=== PATIENT | male | born 1945 | race Caucasian/White ===

== ENCOUNTER 2019-07-09 06:35 | Day surgery (SDC) | payer MEDICARE ==
[2019-07-08 09:46] VITALS: BMI 28.7
[2019-07-09] MEDS ORDERED: EPHEDRINE 25 MG/5 ML SYRINGE ONE ×2 (09:48→10:34)
[2019-07-09] MEDS ORDERED: Lidocaine 1% PF 5 ML VIAL ONE (10:34)
[2019-07-09] MEDS ORDERED: PHENYLEPHRINE-NS 100 MCG/ML 10 ML SYRINGE ONE (10:34)
[2019-07-09] MEDS ORDERED: PROPOFOL 200 MG/20 ML VIAL ONE (10:34)
--- NOTE | 2019-07-09 11:58 | OP ---
DATE OF PROCEDURE: 07/09/2019 PROCEDURE PERFORMED: Colonoscopy with snare polypectomy. PREMEDICATION: Given by Anesthesiology Department. PREPROCEDURE DIAGNOSES: Colon screening, average risk. POSTPROCEDURE DIAGNOSES: 1. Six polyps (2 ascending, 1 hepatic flexure, 2 sigmoid). Polyps were removed. 2. Sigmoid diverticulosis coli. 3. Otherwise, normal colon exam. DESCRIPTION OF PROCEDURE: Written consents were obtained prior to procedure. After adequate sedation, rectal exam was performed and was normal. The endoscope was advanced to the cecum. The quality of the bowel prep was good. The ileocecal valve and appendiceal orifice were visualized and appeared normal. In the ascending colon, 2 ascending colon polyps measuring between 3 to 5 mm were noted and removed with cold snare. A 6 mm hepatic flexure polyp was noted and removed with cold snare and retrieved. The transverse colon appeared normal. Splenic flexure appeared normal. Descending colon appeared normal. Scattered diverticula were noted in the sigmoid colon. Two small polyps ranging between 3 to 5 mm were noted in the sigmoid colon and were removed with cold snare. The rectal vault appeared normal including retroflexion. All polyps were retrieved. The patient tolerated the procedure well without any complication. ASSESSMENT: 1. Six polyps removed. 2. Mild sigmoid diverticulosis coli. 3. Otherwise, normal colon exam. RECOMMENDATIONS: 1. Resume Eliquis tomorrow. 2. Await polyp biopsy result. 3. Future surveillance exam will depend on polyp histology. Job ID: [id number]
== END 2019-07-09 11:03 | disposition home or self-care (01) ==
LOC: SDC 06:35
PROVIDERS: ATTEND Internal Medicine Gastroenterology
PROC: 0DBK8ZX Excision of Ascending Colon, Via Natural or Artificial Opening Endoscopic, Diagnostic (ICD-10-PCS; principal; 2019-07-09)
PROC: 0DBL8ZX Excision of Transverse Colon, Via Natural or Artificial Opening Endoscopic, Diagnostic (ICD-10-PCS; 2019-07-09)
PROC: 0DBN8ZX Excision of Sigmoid Colon, Via Natural or Artificial Opening Endoscopic, Diagnostic (ICD-10-PCS; 2019-07-09)
DX: Z12.11 Encounter for screening for malignant neoplasm of colon (principal); D12.2 Benign neoplasm of ascending colon; D12.3 Benign neoplasm of transverse colon; D12.5 Benign neoplasm of sigmoid colon; K57.30 Diverticulosis of large intestine without perforation or abscess without bleeding; I11.0 Hypertensive heart disease with heart failure; I50.9 Heart failure, unspecified; E78.5 Hyperlipidemia, unspecified; I25.10 Atherosclerotic heart disease of native coronary artery without angina pectoris; I48.91 Unspecified atrial fibrillation; I25.2 Old myocardial infarction; Z86.73 Personal history of transient ischemic attack (TIA), and cerebral infarction without residual deficits; Z79.01 Long term (current) use of anticoagulants; Z79.84 Long term (current) use of oral hypoglycemic drugs; Z79.899 Other long term (current) drug therapy; Z95.5 Presence of coronary angioplasty implant and graft; Z95.810 Presence of automatic (implantable) cardiac defibrillator
CPT/HCPCS: 88305; J2001; J2704

== ENCOUNTER 2022-03-28 11:31 | Outpatient (CLI) | payer MEDICARE ==
[2022-03-28 12:44] LABS: Hemoglobin 14.6 g/dL (13.5-17.5); Mean Corpuscular HGB CONC 33.5 g/dL (32.0-36.0); Mean Corpuscular Hemoglobin 31.3 pg (27.0-33.0); Mean Corpuscular Volume 93.6 fl (81.2-95.1); Mean Platelet Volume 11.6 fl (7.4-10.4); Platelet Count 248 10x3/uL (150-450); Red Blood Cell (RBC) Count 4.66 10x6/uL (4.32-5.72); White Blood Cell (WBC) Count 8.6 10x3/uL (3.5-10.5)
[2022-03-28 13:05] LABS: INR-International Normal Ratio 1.1; PTT 27.3 sec (22.0-33.0); Prothrombin Time 11.4 sec (9.5-12.1)
[2022-03-28 13:09] LABS: Anion Gap 17 mmol/L (10-20); BUN (Urea Nitrogen) 18 mg/dL (8.4-25.7); Calc. Creatinine Clearance 0 mL/min (70-130); Calcium 10.2 mg/dL (7.8-10.44); Carbon Dioxide 24 mmol/L (23-31); Chloride 104 mmol/L (98-107); Estimated GFR 56; Glucose 168 mg/dL (83-110); Potassium 4.5 mmol/L (3.5-5.1); Sodium 140 mmol/L (136-145)
== END 2022-03-28 11:32 | disposition home or self-care (01) ==
LOC: LABBT 11:31
PROVIDERS: ATTEND Internal Medicine Cardiovascular Disease
DX: I48.19 Other persistent atrial fibrillation (principal); Z20.822 Contact with and (suspected) exposure to COVID-19
CPT/HCPCS: 80048; 85027; 85610; 85730